=== PATIENT | female | born 1935 | race Caucasian/White ===

== ENCOUNTER 2019-06-02 09:43 | Emergency (ER) | payer MEDICARE, OTHER ==
[~2019-06-02] VITALS: Ht 152.4 cm; Wt 47.2 kg
[~2019-06-02 09:43] MED LIST: ALLOPURINOL100 MG PO; ICAPS TABLET1 EACH PO
[2019-06-02] MEDS ORDERED: TOPROL XL25 MG PO (09:50)
[2019-06-02] MEDS ORDERED: [UNRECOGNIZED DRUG - OTHER] PO (09:50)
[2019-06-02] MEDS ORDERED: FUROSEMIDE20 MG PO (09:51)
[2019-06-02] MEDS ORDERED: SYNTHROID50 MCG PO (09:51)
[2019-06-02] MEDS ORDERED: LATANOPROST2.5 ML OPTH (10:08)
--- NOTE | 2019-06-02 13:29 | NUR ---
LE 1145: PT IS SEEN IN THE ED FOR A WOUND CONSULT OF THE COCCYX AND BILATERAL HEELS. UPON VISUAL INSPECTION IT IS ALSO NOTED THAT HER BILATERAL LOWER EXTREMITIES COULD ALSO USE SOME ATTENTION, THERE IS A SIGNIFICANT AMOUNT OF DRY DRAINAGE ON BOTH. THE COCCYX WOUND MEASURES 6.2CM X 7.3CM X 0.1CM WITH AN ISLAND AT 3 O'CLOCK MEASURING 1CM X 1.1CM X 0.1CM. THE ARE IS COVERED IN APPROXIMATELY 25% SLOUGH TISSUE, 10% BEING NECROTIC; 75% IS CLEAN NON-GRANULATING TISSUE. THIS IS CLASSIFIED A STAGE 2 PRESSURE INJURY. THE EDGES ARE PROLIFERATIVE, NO SIGNS OF UNDERMINDING OR TUNNELING. THERE IS A SMALL AMOUNT OF EXUDATE, SEROUSANGINOUS IN NATURE. THE PERIWOUND SKIN IS VERY RED, BLANCHABLE. PT DENIES ANY PAIN WITH CLEANSING OR PALPATION. THE ARE IS CLEANSED WITH NS AND DRY GAUZE. IODOSORB IS PLACED IN THE WOUND, THEN COVERED BY A SACRUM DRESSING. TO BE CHANGED EVERY 3 OR 4 DAYS OR PRN. THE BILATERAL HEELS ARE STAGE 1 PRESSURE INJURIES, ABOUT THE SIZE OF A 50 CENT PIECE EACH. THE BASE OF THE WOUNDS ARE UNBLANCHABLE AND FIRMER THAN THE REST OF THE SURROUNDING SKIN. THE EDGES ARE INTACT, NO APPARENT SIGNS OF UNDERMINING OR TUNNLEING. THERE IS NO EXUDATE NOTED. THE PERIWOUND SKIN IS VERY DRY AND SCALY. PT REPORTS DISCOMFORT WITH PRESSURE ON BOTH HEELS. CLEANSED WITH NS AND DRY GUAZE. AN ADHESIVE FOAM IS PLACED ON BOTH HEELS TO OFFLOAD THE AREA AND PROTECT FROM FURTHER PRESSURE. CHANGE THE AREA EVERY 3-4 DAYS OR PRN. 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 PT HAS ONLY BEEN GETTING BED BATHS FOR AT LEAST THE LAST 3 MONTHS. BOTH LEGS ARE SCRUBBED WITH CHLORHEXIDINE 4% SURGICAL SCRUB. THE DRIED DRAINAGE IS MANUALLY REMOVED USING A GLOVED FINGER AND PLASTIC FORCEPS. IN BETWEEN THE TOES ARE THOROUGHLY CLEANSED WELL USING A WET PIECE OF GAUZE, THERE IS A SIGNFICANT AMOUNT OF BUILD UP REMOVED FROM BOTH FEET. THE BILATERAL LOWER EXTREMITIES LOOK SIGNIFICANTLY BETTER AFTER BEING DEEP CLEANED. THEY ARE COVERED IN A BARRIER CREAM, WRAPPED IN KERLEX WHICH IS SECURE WITH COBAN. IT IS RECOMMENDED THAT THE PT GET REFERRED TO [facility] THE PT DOES LIVE IN [place]. THE CAREGIVER IS IN THE ROOM AND THIS INFORMATION IS RELAYED TO HER WELL. THE SUGGESTED REFERRAL IS SHARED WITH THE NURSES AT THE NURSES STATION TO PASS ON TO DR. CHRISTENSEN.
[2019-06-02] MEDS ORDERED: HYDROCODONE-AC118 M1 PO (14:45)
== END 2019-06-02 15:15 | disposition home or self-care (01) ==
LOC: ED 09:43
DX: L89.629 Pressure ulcer of left heel, unspecified stage (principal); L89.619 Pressure ulcer of right heel, unspecified stage; L89.159 Pressure ulcer of sacral region, unspecified stage; R60.0 Localized edema; N18.9 Chronic kidney disease, unspecified; D64.9 Anemia, unspecified; R53.81 Other malaise; Z88.0 Allergy status to penicillin; Z88.2 Allergy status to sulfonamides; Z79.899 Other long term (current) drug therapy
CPT/HCPCS: 80053; 85025; 99284